=== PATIENT | male | born 1930 | race Caucasian/White ===

== ENCOUNTER 2018-09-21 22:57 | Observation (INO) | payer OTHER, MEDICARE ==
[2018-09-21] MEDS ORDERED: NS 1,000 ML IV ONE (23:07)
--- NOTE | 2018-09-21 23:12 | EDPHY ---
H & P Time Seen by Provider: 09/21/18 23:09 HPI/ROS: HPI CHIEF COMPLAINT: Syncope vomiting. HISTORY OF PRESENT ILLNESS: This is a very pleasant 88-year-old male who resides in [place] in his RV, he presents emergency room by EMS after he had a syncopal episode tonight. Patient states that approximately an hour ago he got up as he felt as he was having an upset stomach he felt like he was very nauseous and going to vomit. He went to the bathroom does not remember few vomited but then went to go back to sleep was leaving the bathroom had a syncopal episode and vomited multiple times. 911 EMS was called. The patient had 3-4 episodes of vomiting. Had a syncopal episode witnessed by his son-in- law, brief period of unresponsiveness. EMS arrived him to find him on the ground with vomit all over. Patient arrived to [place] on Tuesday. He has been out here before. No history of this. Patient thought initially this was food poisoning however nobody else is sick and they all ate the same thing. He arrives to the emergency room hemodynamically stable, denies chest pain or shortness of breath denies abdominal pain. Nausea since resolved after 4 mg Zofran by EMS. Denies headache. Denies chest pain or chest pressure. Past Medical History: Significant medical history for hypertension, COPD not on oxygen, thyroid disease, hyperlipidemia Past Surgical History: CABG 15 years ago, aortic valve replacement, cochlear implants Social History: Resides in [place]. Here visiting family. Family History: No significant medical history ROS REVIEW OF SYSTEMS: 10 Systems were reviewed and negative with the exception of the elements mentioned in the history of present illness. Exam Constitutional elderly, nontoxic, triage nursing summary reviewed, vital signs reviewed, awake/alert. Hard of hearing, Eyes normal conjunctivae and sclera, EOMI, PERRLA. HENT cochlear implants. normal inspection, atraumatic, moist mucus membranes, no epistaxis, neck supple/ no meningismus, no raccoon eyes. Respiratory clear to auscultation bilaterally, normal breath sounds, no respiratory distress, no wheezing. Cardiovascular sternotomy scar, rate normal, regular rhythm, no murmur, no edema, distal pulses normal. Gastrointestinal soft, non-tender, no rebound, no guarding, normal bowel sounds, no distension, no pulsatile mass. Genitourinary no CVA tenderness. Musculoskeletal no midline vertebral tenderness, full range of motion, no calf swelling, no tenderness of extremities, no meningismus, good pulses, neurovascularly intact. Skin pink, warm, & dry, no rash, skin atraumatic. Neurologic awake, alert and oriented x 3, AAOx3, moves all 4 extremities equally, motor intact, sensory intact, CN II-XII intact, normal cerebellar, normal vision, normal speech. Psychiatric normal mood/affect. Heme/Lymph/Immune no lymphadenopathy. Differential Diagnosis: Differential diagnosis includes but is not limited to: ACS, atypical chest pain, pneumothorax, pneumonia, pulmonary embolism, aortic dissection, congestive heart failure, tumor, musculoskeletal pain, esophageal pain, GERD, peptic ulcer disease, pancreatitis Medical Decision Making: Includes but is not limited to in a particular order: Vasovagal syncope, orthostatic syncope, cardiac arrhythmia, dehydration, acute coronary syndrome, AAA, dissection, intracranial bleed Re-evaluation: Plan for this patient for syncope and vomiting IV establishment residential monitor EKG, troponin, chest x-ray, D-dimer, gentle IV fluids, basic blood work and re- evaluate. The patient denies any chest pain or chest pressure denies shortness of breath, denies headache. Denies focal numbness or tingling or weakness. EKG interpretation by me on record in [employer] system. Impression time of EKG 2308 sinus rhythm rate of 61 appear interval 280 Q-waves noted V1 V2 but no ST elevation no ST depression. Patient's positive D-dimer. Given the setting of syncope, and vomiting will proceed with CT angiogram of the chest. CT angiogram of the chest faxed to me by direct Radiology at 12:47 a.m., This shows coronary artery disease status post CABG, atherosclerotic of the arterial vasculature, emphysema, left upper lobe nodule hiatal hernia. Here in emergency room the patient patient had multiple episodes of vomiting prior to arrival and a syncopal episode. Here in the ER and patient EKG is nonischemic Troponin negative D-dimer was positive but no evidence of PE. Plan for admission to the hospitalist service overnight for syncope, nausea vomiting. Source: Patient, EMS Constitutional: Initial Vital Signs Heart Rate 63 09/21/18 23:01 Respiratory Rate 16 09/21/18 23:01 Blood Pressure 118/68 09/21/18 23:01 O2 Sat (%) 96 09/21/18 23:01 O2 Delivery Mode Nasal Cannula O2 (L/minute) 2 Allergies/Adverse Reactions: griseofulvin Allergy (Verified 09/22/18 10:10) faint/passes out Home Medications: Medication Instructions Recorded Aspirin [Aspirin 81mg (*)] 81 mg PO DAILY 09/21/18 Atorvastatin Calcium 40 mg PO HS 09/21/18 Fexofenadine HCl 60 mg PO DAILY 09/21/18 Levothyroxine [Synthroid 88 mcg 88 mcg PO DAILY06 09/21/18 (*)] Nitroglycerin [Nitrostat 0.4 mg 0.4 mg SL Q5M PRN 09/21/18 (*)] Ranitidine HCl 150 mg PO DAILY 09/21/18 Ranolazine [Ranexa] 1,000 mg PO BID 09/21/18 Fluticasone/Vilanterol [Breo 1 each IH DAILY 09/22/18 Ellipta 100-25 Mcg INH] Multivitamins [Multivitamin (*)] 1 each PO DAILY 09/22/18 Delong-3 Fatty Acids [Fish Oil 1000 1,000 mg PO DAILY 09/22/18 mg (*)] Medical Decision Making - Data Points Laboratory Results: Laboratory Results 09/21/18 23:10 09/21/18 23:10 Medications Given: Discontinued Medications Aspirin (Aspirin) 81 mg PO DAILY [facility] Stop: 03/21/19 09:44 Last Admin: 09/22/18 10:32 Dose: 81 mg Atorvastatin Calcium (Lipitor) 40 mg PO DAILY [facility] Stop: 03/21/19 09:44 Last Admin: 09/22/18 10:30 Dose: Not Given Enoxaparin Sodium (Lovenox) 40 mg SC DAILY [facility] Stop: 03/21/19 08:59 Last Admin: 09/22/18 09:36 Dose: Not Given Famotidine (Pepcid) 20 mg PO DAILY [facility] Stop: 03/21/19 09:59 Last Admin: 09/22/18 10:32 Dose: Not Given Sodium Chloride (Ns) 1,000 mls @ 0 mls/hr IV EDNOW ONE; Wide Open PRN Reason: Protocol Stop: 09/21/18 23:08 Last Admin: 09/21/18 23:26 Dose: 1,000 mls Levothyroxine Sodium (Synthroid) 88 mcg PO DAILY06 [facility] Stop: 03/21/19 09:59 Last Admin: 09/22/18 10:32 Dose: 88 mcg Ondansetron HCl (Zofran) 4 mg IVP EDNOW ONE Stop: 09/22/18 00:28 Last Admin: 09/22/18 00:30 Dose: 4 mg Point of Care Test Results: Chemistry 09/21/18 23:14 POC Troponin I 0.00 ng/mL ng/mL (0.00-0.08) Departure - Departure Disposition: [facility] Inpatient Acute Clinical Impression: Syncope Vomiting Qualifiers: Vomiting type: unspecified Vomiting Intractability: non-intractable Nausea presence: with nausea Qualified Code(s): R11.2 - Nausea with vomiting, unspecified Condition: Fair
[2018-09-21 23:22] LABS: PLATELET COUNT 204 10^3/uL (150-400)
[2018-09-21 23:31] LABS: INR 0.93 (0.83-1.16); PROTIME(PATIENT) 12.7 SEC (12.0-15.0)
[2018-09-22] MEDS ORDERED: ONDANSETRON 4 MG/2 ML VIAL IVP ONE (00:27)
[2018-09-22] MEDS ORDERED: ONDANSETRON 4 MG/2 ML VIAL ONE (00:28)
[2018-09-22] MEDS ORDERED: ONDANSETRON DISINTEGRATING 4 MG TAB PO PRN (01:34)
[2018-09-22] MEDS ORDERED: ONDANSETRON 4 MG/2 ML VIAL IVP PRN (01:34)
[2018-09-22] MEDS ORDERED: ACETAMINOPHEN 325 MG TAB PO PRN (01:34)
--- NOTE | 2018-09-22 04:12 | PDGENHP ---
History and Physical - Chief Complaint Syncope - History of Present Illness 88 yo M w/ hx of CAD s/p CABG and HTN presents after syncopal event. The patient is visiting from [place]. He has L eye conjunctivitis for 1 week. Then, today, he developed nausea and abdominal discomfort. He got up to go the bathroom to vomit, placed his fingers down his throat, and experienced a syncopal event. Family states he was unconscious for at least a minute but that he returned to baseline mental status fairly quickly. He denies CP or SOB associated with the event. Family did not witness seizure-like activity. At the time of my evaluation he denies symptoms aside from ongoing L eye redness and mild nausea. Work-up in the ED was unremarkable aside from leukocytosis. He is being admitted for observation. Case discussed with ED physician Dr. Queen; records reviewed and summarized above. History Information - Allergies/Home Medication List Allergies/Adverse Reactions: griseofulvin Allergy (Verified 09/21/18 23:10) Home Medications: Aspirin [Aspirin 81mg (*)] 81 mg PO DAILY 09/21/18 [Last Taken Unknown] Atorvastatin Calcium 40 mg PO 09/21/18 [Last Taken Unknown] Fexofenadine HCl 180 mg PO 09/21/18 [Last Taken Unknown] Isosorbide Mononitrate [Imdur 30 mg (*)] 30 mg PO DAILY 09/21/18 [Last Taken Unknown] Levothyroxine [Synthroid 88 mcg (*)] 88 mcg PO DAILY06 09/21/18 [Last Taken Unknown] Nitroglycerin [Nitrostat 0.4 mg (*)] 0.4 mg SL Q5M PRN 09/21/18 [Last Taken Unknown] Ranitidine HCl 150 mg PO 09/21/18 [Last Taken Unknown] Ranolazine [Ranexa] 1,000 mg PO BID 09/21/18 [Last Taken Unknown] amLODIPine BESYLATE [Amlodipine Besylate] 2.5 mg PO DAILY 09/21/18 [Last Taken Unknown] I have personally reviewed and updated: family history, medical history - Past Medical History coronary artery disease, hypertension - Surgical History Reports: coronary bypass surgery - Family History Additional family history: Asked, denies. Healthy adult daughter at bedside - Social History Smoking Status: Former smoker Review of Systems Review of Systems: ROS: 10pt was reviewed & negative except for what was stated in HPI & below Physical Exam Physical Exam: Temp Pulse Resp BP Pulse Ox 36.5 C 78 20 145/70 H 96 09/22/18 02:15 09/22/18 02:15 09/22/18 02:15 09/22/18 02:15 09/22/18 02:15 O2 (L/minute) 2 Constitutional: not in pain Eyes: PERRL, EOMI Ears, Nose, Mouth, Throat: moist mucous membranes, no oral mucosal ulcers Cardiovascular: regular rate and rhythym, systolic murmur Respiratory: no respiratory distress, clear to auscultation Gastrointestinal: normoactive bowel sounds, soft, non-tender abdomen Skin: warm, normal color Musculoskeletal: full muscle strength, no muscle tenderness Neurologic: AAOx3, CN II-XII Intact Psychiatric: interacting appropriately, not anxious Lab Data & Imaging Review 09/21/18 23:10 09/21/18 23:10 WBC 13.09 10^3/uL (3.80-9.50) H 09/21/18 23:10 RBC 4.04 10^6/uL (4.40-6.38) L 09/21/18 23:10 Hgb 13.3 g/dL (13.7-17.5) L 09/21/18 23:10 Hct 40.6 % (40.0-51.0) 09/21/18 23:10 MCV 100.5 fL (81.5-99.8) H 09/21/18 23:10 MCH 32.9 pg (27.9-34.1) 09/21/18 23:10 MCHC 32.8 g/dL (32.4-36.7) 09/21/18 23:10 RDW 13.5 % (11.5-15.2) 09/21/18 23:10 Plt Count 204 10^3/uL (150-400) 09/21/18 23:10 MPV 9.8 fL (8.7-11.7) 09/21/18 23:10 Neut % (Auto) 88.0 % (39.3-74.2) H 09/21/18 23:10 Lymph % (Auto) 2.4 % (15.0-45.0) L 09/21/18 23:10 [place] % (Auto) 7.5 % (4.5-13.0) 09/21/18 23:10 Eos % (Auto) 1.5 % (0.6-7.6) 09/21/18 23:10 Baso % (Auto) 0.2 % (0.3-1.7) L 09/21/18 23:10 Nucleat RBC Rel Count 0.0 % (0.0-0.2) 09/21/18 23:10 Absolute Neuts (auto) 11.52 10^3/uL (1.70-6.50) H 09/21/18 23:10 Absolute Lymphs (auto) 0.31 10^3/uL (1.00-3.00) L 09/21/18 23:10 Absolute Monos (auto) 0.98 10^3/uL (0.30-0.80) H 09/21/18 23:10 Absolute Eos (auto) 0.20 10^3/uL (0.03-0.40) 09/21/18 23:10 Absolute Basos (auto) 0.03 10^3/uL (0.02-0.10) 09/21/18 23:10 Absolute Nucleated RBC 0.00 10^3/uL (0-0.01) 09/21/18 23:10 Immature Gran % 0.4 % (0.0-1.1) 09/21/18 23:10 Immature Gran # 0.05 10^3/uL (0.00-0.10) 09/21/18 23:10 RBC/WBC/PLT Morphology TNP 09/21/18 23:10 Platelet Estimate TNP 09/21/18 23:10 PT 12.7 SEC (12.0-15.0) 09/21/18 23:10 INR 0.93 (0.83-1.16) 09/21/18 23:10 APTT 23.6 SEC (23.0-38.0) 09/21/18 23:10 D-Dimer 0.83 ug/mLFEU (0.00-0.50) H 09/21/18 23:10 Sodium 140 mEq/L (135-145) 09/21/18 23:10 Potassium 4.3 mEq/L (3.5-5.2) 09/21/18 23:10 Chloride 107 mEq/L (97-110) 09/21/18 23:10 Carbon Dioxide 26 mEq/l (22-31) 09/21/18 23:10 Anion Gap 7 mEq/L (6-14) 09/21/18 23:10 BUN 24 mg/dL (7-23) H 09/21/18 23:10 Creatinine 1.3 mg/dL (0.7-1.3) 09/21/18 23:10 Estimated GFR 52 09/21/18 23:10 Glucose 117 mg/dL (70-100) H 09/21/18 23:10 Calcium 9.1 mg/dL (8.5-10.4) 09/21/18 23:10 Magnesium 2.4 mg/dL (1.6-2.3) H 09/21/18 23:10 Total Bilirubin 0.5 mg/dL (0.1-1.4) 09/21/18 23:10 Conjugated Bilirubin 0.3 mg/dL (0.0-0.5) 09/21/18 23:10 Unconjugated Bilirubin 0.2 mg/dL (0.0-1.1) 09/21/18 23:10 AST 37 IU/L (17-59) 09/21/18 23:10 ALT 39 IU/L (21-72) 09/21/18 23:10 Alkaline Phosphatase 108 IU/L (38-126) 09/21/18 23:10 POC Troponin I 0.00 ng/mL (0.00-0.08) 09/21/18 23:14 NT-Pro-B Natriuret Pep 295 pg/mL (0-450) 09/21/18 23:10 Total Protein 6.9 g/dL (6.3-8.2) 09/21/18 23:10 Albumin 4.4 g/dL (3.5-5.0) 09/21/18 23:10 Lipase 109 IU/L (23-300) 09/21/18 23:10 Imaging Review: Imaging Impressions Chest X-Ray 09/21/18 23:07 Impression: Senescent changes of lung. Visualized and Interpreted EKG results: Yes EKG Interpretation: Positive for: normal sinsus rhythm Assessment & Plan Assessment: 88 yo M w/ hx of CAD and HTN presents after syncopal event. Plan: 1. Syncope - Highly suspicious for vasovagal event noting patient was placing his finger down his throat to vomit when it occurred. He has an ongoing viral infection (conjunctivitis, nausea) and likely dehydration from traveling to altitude contributing as well. Work-up thus far unrevealing including negative CTPE (personally reviewed/interpreted). - Admit for observation - Monitor on telemetry - S/p 1 L NS - PT/OT evaluations 2. Hx CAD - S/p CABG, he denies any acute symptoms. ECG (personally reviewed/ interpreted) without signs of ischemia. Troponin negative. 3. Hx HTN - Continue home medications pending reconciliation 4. Leukocytosis - Likely multifactorial from viral infection and reactive to vomiting/syncope. - Monitor CBC 5. Lung nodule - 6 mm in DYLAN; incidental finding. - Recommend outpatient follow-up 6. T3 compression fracture - Unclear acuity, patient denies symptoms. - Recommend osteoporosis evaluation as outpatient Diet - Regular Code - Full Ppx - LMWH Dispo - Admit under observation status
[2018-09-22 08:18] LABS: PLATELET COUNT 187 10^3/uL (150-400)
[2018-09-22] MEDS ORDERED: ENOXAPARIN 40 MG/0.4 ML SYR SC SCH (09:00)
[2018-09-22] MEDS ORDERED: NITROGLYCERIN 0.4 MG BTL SL PRN (09:36)
[2018-09-22] MEDS ORDERED: ASPIRIN 81 MG CHEWABLE TAB PO SCH (09:45)
[2018-09-22] MEDS ORDERED: ATORVASTATIN CALCIUM 40 MG TAB PO SCH ×2 (09:45→21:00)
[2018-09-22] MEDS ORDERED: FAMOTIDINE 20 MG TAB PO SCH ×2 (10:00→21:00)
[2018-09-22] MEDS ORDERED: LEVOTHYROXINE 88 MCG TAB PO SCH (10:00)
[2018-09-22 12:24] VITALS: BP 110/49
--- NOTE | 2018-09-22 13:20 | PDDCSUM ---
Discharge Summary Discharge Summary: 88 yo M w/ hx of CAD and HTN presents after syncopal event likely vasovagal. He was found to have dehydration and soft BP. He was hydrated. He is back to his baseline. He has been cleared by PT. Home Amlodipine and Imdur have been held. He will fly back to [place] tomorrow and will f/u with his PCP and [employer] DDX: 1. Syncope - Highly suspicious for vasovagal event noting patient was placing his finger down his throat to vomit when it occurred. He has an ongoing viral infection (conjunctivitis, nausea) and likely dehydration from traveling to altitude contributing as well. Work-up thus far unrevealing including negative CTPE (personally reviewed/interpreted). 2. Hx CAD - S/p CABG, he denies any acute symptoms. ECG (personally reviewed/ interpreted) without signs of ischemia. Troponin negative. 3. Hx HTN - Med changes per above 4. Leukocytosis - Likely multifactorial from viral infection and reactive to vomiting/syncope. - improving. WBC count 11.81 on discharge. Afebrile. No e/o infection 5. Lung nodule - 6 mm in DYLAN; incidental finding. - Recommend outpatient follow-up 6. T3 compression fracture - Unclear acuity, patient denies symptoms. - Recommend osteoporosis evaluation as outpatient Meds: see med rec f/u: per above. Will make appts for next week Exam NAD AAOX3 RRR CTA B S/NT/ND TOTAL TIME SPENT ON D/C IS 35 MINS
--- NOTE | 2018-09-22 14:27 | ASDISCHSUM ---
Discharge Information Plan Status:Home with No Needs Medically Cleared to Leave:09/21/2018 Discharge Date:09/21/2018 CM D/C Disposition:Home, Routine, Self-Care ADT D/C Disposition:Home, Routine, Self-Care Projected Discharge Date:09/21/2018 Transportation at D/C:Family Discharge Delay Reason: Follow-Up Date:09/21/2018 Discharge Slot: Final Diagnosis: Placement Information Patient Contact Information Contact Name:CHRISTIANO Relationship: Address:[address] Work Phone: City:[facility] Phone: State/Zip Code:[place] [address] Email: Financial Information Financial Class:Medicare Primary Plan Desc:MEDICARE OUTPATIENT Primary Plan Number:[id number] Secondary Plan Desc:[employer] SU[employer]MENT Secondary Plan Number:[id number] Assessment Information LACE LACE Length of stay for Answers: Less than 1 day current admission Acuity / Level of Answers: No Care: Did the patient have an inpatient admission? Comorbidities - select Answers: Chronic pulmonary disease all that apply Coronary Artery Disease Other Notes: HTN; HLD; Thyroid disea se # of Emergency department Answers: 1-2 visits in the last 6 months Score: 6 Date Signed: 09/22/2018 02:27 PM Electronically Signed By:Roseann Hugo RN Case Management Discharge Plan Note Case Management Discharge Discharge Order Complete? Answers: Yes Patient to Obtain Answers: via Family Medications Transportation Arranged Answers: Family/Friends Discharge Comments Notes: 09/22/2018 Case Management Note Pt admitted for syncope after vomiting. PT cleared to return home without services. No further case management d/c needs identified. Pt discharged independent with follow up as directed. Date Signed: 09/22/2018 02:26 PM Electronically Signed By:Roseann Hugo RN Intervention Information Intervention Type:*NATALIE-Signed Date of Service:09/22/2018 11:06 AM Patient Type:Observation Staff Member:Taryn Foy Hours: Discipline: Severity: Comment:
[2018-09-22] MEDS ORDERED: RANOLAZINE 500 MG TAB.ER PO SCH (21:00)
--- NOTE | 2018-09-23 07:33 | CPEKG ---
Test Reason : OPEN Blood Pressure : / mmHG Vent. Rate : 061 BPM Atrial Rate : 061 BPM P-R Int : 280 ms QRS Dur : 102 ms QT Int : 458 ms P-R-T Axes : 070 -04 043 degrees QTc Int : 462 ms Sinus rhythm Prolonged [place] interval Probable anteroseptal infarct, old Confirmed by Les Coates ([id number]) on 09/23/2018 7:33:23 AM Referred By: Les Coates Confirmed By:Les Coates
== END 2018-09-22 14:34 | disposition home or self-care (01) ==
LOC: EDUNIT# → F2W 09-22 02:14
PROVIDERS: ADMIT Student in an Organized Health Care Education/Training Program; ATTEND Student in an Organized Health Care Education/Training Program
DX: R55 Syncope and collapse (principal); D72.829 Elevated white blood cell count, unspecified; R91.1 Solitary pulmonary nodule; M48.54XA Collapsed vertebra, not elsewhere classified, thoracic region, initial encounter for fracture; E86.9 Volume depletion, unspecified; Z86.79 Personal history of other diseases of the circulatory system
CPT/HCPCS: 71045; 71275; 93005; 96361; 96374; 97161; 99285; G0378; J1650; J2405; 84484-ER